=== PATIENT | female | born 1985 | race Caucasian/White ===

== ENCOUNTER → 2018-07-14 | Outpatient (CLI) | payer BC | END | disposition home or self-care (01) | LOC: US 07-10 15:00 | DX: Z34.01 Encounter for supervision of normal first pregnancy, first trimester (principal); Z3A.08 8 weeks gestation of pregnancy ==

== ENCOUNTER → 2018-09-29 | Outpatient (CLI) | payer BC | END | disposition home or self-care (01) | LOC: US 09-24 17:00 | DX: Z34.82 Encounter for supervision of other normal pregnancy, second trimester (principal); Z3A.19 19 weeks gestation of pregnancy ==

== ENCOUNTER → 2018-10-24 | Outpatient (CLI) | payer BC | END | disposition home or self-care (01) | LOC: US 10-23 15:00 | DX: Z34.82 Encounter for supervision of other normal pregnancy, second trimester (principal); Z3A.23 23 weeks gestation of pregnancy ==

== ENCOUNTER → 2018-11-28 | Outpatient (CLI) | payer BC | END | disposition home or self-care (01) | LOC: RESCLI 01:19 | DX: J45.909 Unspecified asthma, uncomplicated (principal); D64.89 Other specified anemias; R11.0 Nausea; Z79.899 Other long term (current) drug therapy ==

== ENCOUNTER → 2019-02-11 | Outpatient (CLI) | payer BC ==
[~2019-02-11] MED LIST: ZITHROMAX250 MG PO
== END | disposition home or self-care (01) ==
LOC: US 14:21
DX: Z34.83 Encounter for supervision of other normal pregnancy, third trimester (principal); Z3A.39 39 weeks gestation of pregnancy

== ENCOUNTER 2019-03-03 12:57 | Emergency (ER) | payer BC ==
[~2019-03-03] VITALS: Ht 175.2 cm; Wt 92.1 kg
[2019-03-03] MEDS ORDERED: ZITHROMAX250 MG PO (14:35)
== END 2019-03-03 15:05 | disposition home or self-care (01) ==
LOC: ED 12:57
DX: J40 Bronchitis, not specified as acute or chronic (principal)

== ENCOUNTER → 2019-03-10 | Outpatient (CLI) | payer BC | END | disposition home or self-care (01) | LOC: RESCLI 01:31 | DX: Z34.80 Encounter for supervision of other normal pregnancy, unspecified trimester (principal); J45.40 Moderate persistent asthma, uncomplicated; E66.9 Obesity, unspecified; J45.909 Unspecified asthma, uncomplicated; Z68.31 Body mass index [BMI] 31.0-31.9, adult ==

== ENCOUNTER → 2019-04-01 | Outpatient (CLI) | payer BC ==
[2019-04-01 15:35] LABS: BASO % 0.5 % (0.0-1.0); EOS # 0.3 10*3/uL (0.0-0.4); EOS % 3.7 % (1.0-4.0); HEMATOCRIT 42.1 % (37.0-47.0); HEMOGLOBIN 13.7 g/dl (12.0-16.0); LYMPH # 2.5 10*3/uL (1.3-4.4); LYMPH % 32.1 % (27.0-41.0); MEAN CELL VOLUME 90.7 fl (81.0-99.0); MEAN CORPUSCULAR HGB 29.5 pg (27.0-31.0); MEAN CORPUSCULAR HGB CONC 32.5 g/dl (33.0-37.0); MEAN PLATELET VOLUME 10.1 fl (9.6-12.3); MONO # 0.4 10*3/uL (0.1-1.0); MONO % 5.3 % (3.0-9.0); NEUT # 4.6 10*3/uL (2.3-7.9); NEUT % 58.1 % (47.0-73.0); PLATELET COUNT AUTOMATED 392 10*3/uL (130-400); RED BLOOD COUNT 4.64 10*6/uL (4.10-5.10); RED CELL DISTRI WIDTH 12.8 % (0-14.5); WHITE BLOOD COUNT 7.9 10*3/uL (4.8-10.8)
[2019-04-01 15:50] LABS: ALBUMIN 3.6 gm/dl (3.1-4.5); ALKALINE PHOSPHATASE 119 U/L (45-117); BUN 19 mg/dl (7-24); CHLORIDE 106 mmol/L (98-107); CHOLESTEROL 281 mg/dL (<200); CREATININE 0.92 mg/dL (0.55-1.02); HDL CHOLESTEROL 90 mg/dl (40-60); IRON 104 ug/dL (50-170); LDL CHOLESTEROL 134 mg/dL (9-159); POTASSIUM 4.2 mmol/L (3.5-5.1); SGOT/AST 69 IU/L (3-35); SGPT/ALT 165 U/L (12-78); SODIUM 140 mmol/L (136-145); TOTAL IRON BINDING CAPACITY 342 ug/dl (250-450); TOTAL PROTEIN 7.6 gm/dL (6.4-8.2); TRIGLYCERIDES 283 mg/dl (<150); VLDL CHOLESTEROL 57 mg/dL (6-40)
== END | disposition home or self-care (01) ==
LOC: LAB 13:47
PROVIDERS: Internal Medicine
DX: Z39.2 Encounter for routine postpartum follow-up (principal); E66.9 Obesity, unspecified

== ENCOUNTER → 2019-04-14 | Outpatient (CLI) | payer BC ==
[2019-04-14 15:52] LABS: BASO % 0.5 % (0.0-1.0); EOS # 0.2 10*3/uL (0.0-0.4); EOS % 2.3 % (1.0-4.0); HEMATOCRIT 42.9 % (37.0-47.0); LYMPH # 2.6 10*3/uL (1.3-4.4); LYMPH % 33.7 % (27.0-41.0); MEAN CELL VOLUME 90.7 fl (81.0-99.0); MEAN CORPUSCULAR HGB 29.6 pg (27.0-31.0); MEAN CORPUSCULAR HGB CONC 32.6 g/dl (33.0-37.0); MEAN PLATELET VOLUME 9.1 fl (9.6-12.3); MONO # 0.4 10*3/uL (0.1-1.0); MONO % 5.7 % (3.0-9.0); NEUT # 4.4 10*3/uL (2.3-7.9); NEUT % 57.5 % (47.0-73.0); PLATELET COUNT AUTOMATED 373 10*3/uL (130-400); RED BLOOD COUNT 4.73 10*6/uL (4.10-5.10); RED CELL DISTRI WIDTH 12.9 % (0-14.5); WHITE BLOOD COUNT 7.7 10*3/uL (4.8-10.8)
[2019-04-14 16:21] LABS: ALKALINE PHOSPHATASE 110 U/L (45-117); BILIRUBIN, DIRECT 0.2 mg/dL (0.0-0.2); BUN 16 mg/dl (7-24); CHLORIDE 106 mmol/L (98-107); CHOLESTEROL 273 mg/dL (<200); CREATININE 0.83 mg/dL (0.55-1.02); HDL CHOLESTEROL 108 mg/dl (40-60); LDL CHOLESTEROL 151 mg/dL (9-159); POTASSIUM 4.1 mmol/L (3.5-5.1); SGOT/AST 82 IU/L (3-35); SGPT/ALT 209 U/L (12-78); SODIUM 139 mmol/L (136-145); TOTAL PROTEIN 7.9 gm/dL (6.4-8.2); TRIGLYCERIDES 71 mg/dl (<150); VLDL CHOLESTEROL 14 mg/dL (6-40)
[2019-04-15 04:04] LABS: HEPATITIS B SURFACE AG Negative (Negative); HEPATITIS C VIRUS ANTIBODY <0.1 s/co (0.0-0.9)
== END | disposition home or self-care (01) ==
LOC: RESCLI 01:04
PROVIDERS: Internal Medicine
DX: J45.40 Moderate persistent asthma, uncomplicated (principal); E66.9 Obesity, unspecified; J45.909 Unspecified asthma, uncomplicated; E78.2 Mixed hyperlipidemia; R74.0 Nonspecific elevation of levels of transaminase and lactic acid dehydrogenase [LDH]; Z68.31 Body mass index [BMI] 31.0-31.9, adult

== ENCOUNTER → 2019-04-22 | Outpatient (CLI) | payer BC | END | disposition home or self-care (01) | LOC: RESCLI 00:35 | DX: J45.909 Unspecified asthma, uncomplicated (principal); R79.89 Other specified abnormal findings of blood chemistry; Z79.899 Other long term (current) drug therapy ==

== ENCOUNTER → 2019-05-27 | Outpatient (CLI) | payer BC | END | disposition home or self-care (01) | LOC: RESCLI 00:28 | DX: J45.909 Unspecified asthma, uncomplicated (principal); R76.8 Other specified abnormal immunological findings in serum; Z98.890 Other specified postprocedural states; Z79.899 Other long term (current) drug therapy ==

== ENCOUNTER → 2019-11-17 | Outpatient (CLI) | payer BC | END | disposition home or self-care (01) | LOC: COVID19 00:13 | DX: Z20.828 Contact with and (suspected) exposure to other viral communicable diseases (principal); R06.02 Shortness of breath; R19.7 Diarrhea, unspecified; R53.83 Other fatigue ==

== ENCOUNTER → 2020-07-08 | Outpatient (CLI) | payer BC | END | disposition home or self-care (01) | LOC: RESCLI 00:30 | PROVIDERS: ATTEND Internal Medicine | DX: J45.909 Unspecified asthma, uncomplicated (principal); Z79.899 Other long term (current) drug therapy; Z88.8 Allergy status to other drugs, medicaments and biological substances ==

== ENCOUNTER → 2021-02-13 | Outpatient (CLI) | payer BC | END | disposition home or self-care (01) | LOC: MAMMO 07:10 | PROVIDERS: ATTEND Nurse Practitioner Women's Health | DX: Z12.31 Encounter for screening mammogram for malignant neoplasm of breast (principal) ==

== ENCOUNTER → 2021-02-24 | Outpatient (CLI) | payer BC | END | disposition home or self-care (01) | LOC: RESCLI 00:41 | PROVIDERS: ATTEND Internal Medicine | DX: J30.2 Other seasonal allergic rhinitis (principal); J45.40 Moderate persistent asthma, uncomplicated; N94.3 Premenstrual tension syndrome; Z30.011 Encounter for initial prescription of contraceptive pills; Z98.890 Other specified postprocedural states; Z79.899 Other long term (current) drug therapy; E78.5 Hyperlipidemia, unspecified ==

== ENCOUNTER → 2021-07-20 | Outpatient (CLI) | payer BC ==
[2021-07-20 16:54] LABS: BUN 10 mg/dl (7-24); CHLORIDE 108 mmol/L (98-107); CREATININE 0.79 mg/dL (0.55-1.02); POTASSIUM 3.8 mmol/L (3.5-5.1); SODIUM 139 mmol/L (136-145)
== END | disposition home or self-care (01) ==
LOC: LAB 16:25 → CT 16:25
PROVIDERS: ATTEND Nurse Practitioner Family
DX: R93.5 Abnormal findings on diagnostic imaging of other abdominal regions, including retroperitoneum (principal); R10.9 Unspecified abdominal pain

== ENCOUNTER → 2022-03-01 | Outpatient (CLI) | payer BC | END | disposition home or self-care (01) | LOC: RESCLI 00:54 | PROVIDERS: ATTEND Internal Medicine | DX: J45.909 Unspecified asthma, uncomplicated (principal); Z82.49 Family history of ischemic heart disease and other diseases of the circulatory system; Z88.8 Allergy status to other drugs, medicaments and biological substances; Z98.890 Other specified postprocedural states; Z79.899 Other long term (current) drug therapy ==